=== PATIENT | female | born 1985 | race Two or more races ===

== ENCOUNTER 2024-11-23 18:29 | Inpatient (IN) | payer MEDICAID, OTHER ==
[~2024-11-23] VITALS: Ht 162.6 cm; Wt 70.4 kg
[2024-11-23 19:26] LABS: Urine Protein, UAD TRACE (Negative)
[2024-11-23] MEDS ORDERED: ONDANSETRON HCL 4 MG/2 ML VIAL IV ONE (19:30)
[2024-11-23] MEDS ORDERED: MORPHINE SULFATE 4 MG/ML SYR/VIAL IV ONE (19:30)
--- NOTE | 2024-11-23 19:42 | ED.PDOC ---
GI ASSESSMENT HPI Comments 39 year old female presents to the ED with a chief complaint of abdominal pain onset 1 day. Patient states she began experiencing abdominal pain, described as a sharp pain, periumbilical region, shortly after eating dinner last night. Since then has been experiencing nausea, vomiting, fevers, chills. Patient experienced similar symptoms about 1 week ago, resolved on its own. Denies any PMHx as well as dizziness, chest pain, shortness of breath, hematemesis, dysuria, hematuria. No other symptoms or modifying factors present at this time. Chief Complaint: Abdominal Pain Time Seen by MD: :25 Reviewed Notes: Medications, Allergies Allergies: Coded Allergies: NO KNOWN ALLERGIES (Unverified , 11/23/24) Information Source: Patient, Spouse Mode of Arrival: Ambulatory Timing: Days Duration: Since onset Prehospital treatment: None Quality: Sharp Severity: Moderate Recent: None Recent Hx of: None Pain Location: Periumbilical Modifying Factors: Nothing Associated sign and symptoms: Nausea, Vomiting, Abdominal Pain Past Medical History PAST MEDICAL HISTORY: Denies Surgical History: Denies all surgeries AUTO INSPECTOR History: No Pertinent AUTO INSPECTOR History Family History Family History: Reviewed,noncontributory to illness, No family hx of Cancer, No family hx of DM, No family hx of Heart dorothy, No family hx of HTN, No family hx ofKidney dorothy, No family hx of Liver dorothy, No family hx of Lung dorothy, No family hx of Stroke Social History Smoker: Non-Smoker Alcohol: Denies ETOH Use Drugs: Denies Drug Use Lives In: Home EENTM: denies: blurred vision, double vision, ear bleeding, ear discharge, ear drainage, ear pain, ear ringing, eye pain, eye redness, hearing loss, mouth pain, mouth swelling, nasal discharge, nose bleeding, nose congestion, nose pain, photophobia, tearing, throat pain, throat swelling, voice changes, others Respiratory: denies: cough, hemoptysis, orthopnea, SOB at rest, shortness of breath, SOB with excertion, stridor, wheezing, others Cardiovascular: denies: chest pain, dizzy spells, diaphoresis, Dyspnea on exertion, edema, irregular heart beat, left arm pain, lightheadedness, palpitations, PND, syncope, others Gastrointestinal: reports: abdominal pain, nausea, vomiting; denies: abdomen distended, blood streaked bowels, constipated, diarrhea, dysphagia, difficulty swallowing, hematemesis, melena, poor appetite, poor fluid intake, rectal bleeding, rectal pain, others Genitourinary: denies: abnormal vagina bleeding, burning, dyspareunia, dysuria, flank pain, frequency, hematuria, incontinence, pain, , vagina di scharge, urgency, others Neurological: denies: dizziness, fainting, headache, left sided numbness, left sided weakness, numbness, paresthesia, pre-existing deficit, right sided numbness, right sided weakness, seizure, speech problems, tingling, tremors, weakness, others Musculoskeletal: denies: back pain, gout, joint pain, joint swelling, muscle pain, muscle stiffness, neck pain, others Integumetry: denies: bruises, change in color, change in hair/nails, dryness, laceration, lesions, lumps, rash, wounds, others Allergic/Immunocompromised: denies: Difficulty Healing, Frequent Infections, Hives, Itching, others Hematologic/Lymphatic: denies: anemia, blood clots, easy bleeding, easy bruising, swollen glands, others Endocrine: denies: excessive hunger, excessive sweating, excessive thirst, excessive urination, flushing, intolerance to cold, intolerance to heat, unexplained weight gain, unexplained weight loss, others Psychiatric: denies: anxiety, bipolar disorder, depression, hopeless, panic disorder, schizophrenia, sleepless, suicidal, others All Other Systems: Reviewed and Negative Physical Exam General Appearance: Normal HEENT: Normal ENT Inspection, Pharynx Normal, TMs Normal Neck: Full Range of Motion, Non-Tender, Normal, Normal Inspection Respiratory: Chest Non-Tender, Lungs Clear, No Accessory Muscle Use, No Respiratory Distress, Normal Breath Sounds Cardiovascular: No Edema, No JVD, No Murmur, No Gallop, Normal Peripheral Pulses, Regular Rate/Rhythm Breast Exam: Deferred Gastrointestinal: No Organomegaly, Non Tender, No Pulsatile Mass, Normal Bowel Sounds, Soft Genitalia: Deferred Pelvic: Deferred Rectal: Deferred Extremities: No calf tenderness, Normal capillary refill, Normal inspection, Normal range of motion, Non-tender, No pedal edema Musculoskeletal : Apperance: Normal Neurologic: Alert, manager float II-XII nml as Tested, No Motor Deficits, Normal Affect, Normal Mood, No Sensory Deficits Cerebellar Function: Normal Reflexes: Normal Skin: Dry, Normal Color, Warm Lymphatic: No Adenopathy Was a procedure done? Was a procedure done?: No GI differential Dx Differential Diagnosis: Appendicitis, Missed , Diverticular disease, Ectopic , Gastritis/PUD, PID, Urinary Obstruction, UTI, , Kidney Stone, Other X-Ray, Labs, Meds, VS Vital Signs Date Time Temp Pulse Resp B/P (MAP) Pulse Ox O2 Delivery O2 Flow Rate FiO2 11/23/24 22:12 98.7 109 16 102/57 (72) 95 98.7 11/23/24 20:01 100.9 115 17 99/67 (78) 96 100.9 11/23/24 18:31 99.6 127 20 120/95 96 99.6 Lab Test 11/23/24 19:21 11/23/24 18:41 Range/Units White Blood Count 12.2 H 4.4-10.8 10^3/uL Red Blood Count 4.29 4.0-5.20 10^6/uL Hemoglobin 12.9 12.2-16.2 g/dL Hematocrit 37.6 36.0-46.0 % Mean Corpuscular Volume 87.6 80.0-100.0 fL Mean Corpuscular Hemoglobin 30.0 28.0-32.0 pg Mean Corpuscular Hemoglobin Concent 34.2 32.0-36.0 g/dL Red Cell Distribution Width 13.9 11.8-14.3 % Platelet Count 340 140-450 10^3/uL Mean Platelet Volume 8.1 6.9-10.8 fL Neutrophils (%) (Auto) 86.2 H 37.0-80.0 % Lymphocytes (%) (Auto) 10.0 10.0-50.0 % Monocytes (%) (Auto) 3.6 0.0-12.0 % Eosinophils (%) (Auto) 0.0 0.0-7.0 % Basophils (%) (Auto) 0.2 0.0-2.0 % Neutrophils # (Auto) 10.5 H 1.6-8.6 10 ^3/uL Lymphocytes # (Auto) 1.2 0.4-5.4 10 ^3/uL Monocytes # (Auto) 0.4 0-1.3 10 ^3/uL Eosinophils # (Auto) 0 0-0.8 10 ^3/uL Basophils # (Auto) 0 0-0.2 10 ^3/uL Nucleated Red Blood Cells 0.1 % Sodium Level 135 L 136-145 mmol/L Potassium Level 3.6 3.5-5.1 mmol/L Chloride Level 101 98-107 mmol/L Carbon Dioxide Level 23 20-31 mmol/L Anion Gap 11 5-15 Blood Urea Nitrogen 8 L 9-23 mg/dL Creatinine 0.74 0.550-1.02 mg/dL Glomerular Filtration Rate Calc 105 >90 mL/min BUN/Creatinine Ratio 10.8 10.0-20.0 Serum Glucose 129 H 74-106 mg/dL Calcium Level 8.9 8.7-10.4 mg/dL Total Bilirubin 0.5 0.2-1.0 mg/dL Aspartate Amino Transferase (AST) 15 13-40 U/L Alanine Aminotransferase (ALT) 15 7-40 U/L Alkaline Phosphatase 61 46-116 U/L Total Protein 7.8 5.7-8.2 g/dL Albumin 4.4 3.2-4.8 g/dL Lipase 29 12-53 U/L Urine Color Yellow Yellow Urine Clarity Clear Clear Urine pH 8.0 5.0-9.0 Urine Specific [place] 1.027 1.001-1.035 Urine Protein Trace H Negative Urine Ketones Negative Negative Urine Blood Negative Negative /uL Urine Nitrite Negative Negative Urine Bilirubin Negative Negative Urine Urobilinogen Normal Negative mg/dL Urine Leukocyte Esterase Negative Negative /uL Urine RBC 1 0 - 4 /hpf Urine Microscopic WBC 2 0-5 /HPF Urine Squamous Epithelial Cells Few <5 /hpf Urine Bacteria None seen None Seen /hpf Urine Mucus Few None Seen Urine Glucose Normal Normal mg/dL Urine Test Negative Negative Current Medications Medications (Trade) Dose Ordered Sig/Leonarda Route Start Time Stop Time Status Last Admin Sodium Chloride 1,000 ml @ 1,000 mls/hr Q1H ONCE IVB 11/23/24 19:30 11/23/24 20:29 DC 11/23/24 19:57 Acetaminophen (Tylenol Tablet Or Capsule) 1,000 mg ONCE ONCE PO 11/23/24 20:45 11/23/24 20:46 DC 11/23/24 20:[address] [address] Ph: [phone] DIAGNOSTIC IMAGING Diagnostic Imaging Report : [id number] Signed PATIENT: JODI MCLEAN ACCT: [id number] UNIT: [id number] : 1985 LOC: ER ROOM / BED: / AGE / SEX: 39 / F ADM STATUS: REG ER SERVICE 27 ORDERING PHYSICIAN: STEPHANIE ACEVES MD PROCEDURE(s): ABPLIV - CT AB PEL WITH IV CON ONLY REASON: abd pain ORDER NUMBER(s): [id number], ACCESSION NUMBER(s): [id number] Exam: CT CT AB PEL WITH IV CON ONLY History: abd pain Comparison Study: None TECHNIQUE: Multidetector CT of the abdomen was performed from lung bases to pubic symphysis. Imaging was performed without IV contrast. Axial, coronal and sagittal multiplanar reformats were obtained from the axial data set by the technologist. Radiation Dose Information: CT Dose: CTDI volume is 8.38 mGy. Dose-length product is 436.9 mGy*cm Omnipaque 350: 100 mL FINDINGS: Evaluation of solid organs is limited due to lack of intravenous contrast use. Findings: Lung Bases: No acute or significant lung base finding. Normal heart size. No pleural or pericardial effusion. Liver: The liver is normal in size. No focal lesions. Gallbladder and Biliary Tree: Unremarkable Spleen: Unremarkable Pancreas: The pancreas is grossly normal in appearance. Adrenal Glands: Unremarkable Kidneys: Kidneys are grossly normal without calculi or hydronephrosis. Bladder: Grossly unremarkable for degree of distention. Bowel: The stomach is grossly normal in appearance. Small bowel and colon are normal in caliber and distribution. The appendix is not visualized; however, no secondary findings of acute appendicitis identified. Ascites: Absent Lymphadenopathy: No mesenteric, retroperitoneal or periportal lymphadenopathy. Abdominal Wall and Mesentery: Unremarkable. Vasculature: The visualized abdominal aorta is normal in size and caliber. Evaluation of abdominal and pelvic vessels is limited due to lack of intravenous contrast. Pelvic Organs: In the left adnexa there appear to be 2 low-density masses which appear to be overlapping or may represent a solitary septated mass. Measures 5 0.1 x 3.7 cm. Pain is referable to this area recommend pelvic ultrasound. There appears to be 5.7 by 3 cm fluid collection in the cul-de-sac. Musculoskeletal: No aggressive focal bony lesions, acute fractures or dislocation. Soft tissues: Unremarkable IMPRESSION: 1. 2 low-density masses in the left adnexa with moderate amount of fluid in the cul-de-sac. Findings may represent simple ovarian cysts or tubo-ovarian abscess. Can not exclude ovarian torsion correlate with the degree of patient discomfort. Tissue density of the fluid in the cul-de-sac is 24 Hounsfield units. This is not simple serous fluid of a uncomplicated cyst. This may represent hemorrhagic fluid or infected fluid. No gas in the collection. 2. Correlate with the clinical setting. 3. Appendix not visualized. 4. Currently there are no findings to suggest bowel obstruction. Radiation optimization: All CT scans at this facility use at least one of these dose optimization techniques: automated exposure control mA and/or kV adjustment per patient size (includes targeted exams where dose is matched to clinical indication) or iterative reconstruction. ATED BY: KYLE RAMEY Jr., DO DICTATED DATE/TIME: 11/23/242056 SIGNED BY: KYLE RAMEY Jr., SIGNED DATE/TIME: 11/23/242056 CC: Time of 1ST Reevaluation: 19:55 Reevaluation 1ST: Unchanged Patient Education/Counseling: Diagnosis, Treatment, Prognosis Family Education/Counseling: Diagnosis, Treatment, Prognosis Additional Information The following tests were ordered, and results were reviewed by me: CBC, CMP, LIPASE, UA, PREGUA, CT AB PEL WITH IV CON Additional Information was gathered from interviewing the following independent historians: Spouse I reviewed and agreed with the following test results read by other providers: CT AB PEL WITH IV CON I discussed treatment and results with medical personnel and: patient and spouse Comprehensive systems review obtained and negative except for what is stated in the HPI. SEPSIS Sepsis Screen Date sepsis recognized/suspect: Nov 23, 2024 Time Sepsis recognized/suspect: 1830 Recent Procedure: No On Antibiotic Therapy: No Respiratory Rate >20: No Heart Rate >90: Yes Temp<36 C (96.8 F) or >38.3 C: No SBP <90 or MAP <65 mmHG: No New Acute Mental Status Change: No Is the patient on CPAP, BIPAP,: No Physician Orders Ct Ab Pel With Iv Con Only (11/23/24 19:28) Lactic Acid W/ Reflex Order (11/23/24 22:19) Blood Culture (11/23/24 22:19) Chlamydia/Gc Amplification (11/23/24 22:19) Ceftriaxone Ivpb Rocephin (11/23/24 22:30) Azithromycin 500mg/ 250ml (Zithromax 50 (11/23/24 22:30) Vital Signs Date Time Temp Pulse Resp B/P (MAP) Pulse Ox O2 Delivery O2 Flow Rate FiO2 11/23/24 22:12 98.7 109 16 102/57 (72) 95 98.7 11/23/24 20:01 100.9 115 17 99/67 (78) 96 100.9 11/23/24 18:31 99.6 127 20 120/95 96 99.6 Laboratory Tests Test 11/23/24 19:21 White Blood Count 12.2 10^3/uL (4.4-10.8) H Medications Medications Dose Ordered Sig/Leonarda Route Start Time Stop Time Status Last Admin Dose Admin Acetaminophen 1,000 mg ONCE ONCE PO 11/23/24 20:45 11/23/24 20:46 DC 11/23/24 20:45 Sodium Chloride 1,000 ml @ 1,000 mls/hr Q1H ONCE IVB 11/23/24 19:30 11/23/24 20:29 DC 11/23/24 19:57 Departure 1 Departure Time of Disposition: 22:21 Impression: Primary Impression: Tubo-ovarian inflammatory disease Additional Impression: Ovarian cyst Disposition: ADMITTED INPATIENT Condition: Guarded Comments Mid and CT reviewed. White blood cell count elevated 12.2. CT of the abdomen and pelvis shows: 2 low-density masses in the left adnexa with moderate amount of fluid in the cul-de-sac. Findings may represent simple ovarian cysts or tubo-ovarian abscess. Can not exclude ovarian torsion correlate with the degree of patient discomfort. Tissue density of the fluid in the cul-de-sac is 24 Hounsfield units. This is not simple serous fluid of a uncomplicated cyst. This may represent hemorrhagic fluid or infected fluid. No gas in the collection. Patient was given IV Rocephin and IV azithromycin antibiotics. I attempted to consult with OBGYN Dr. Calvillo but she was unavailable. Patient will need to be admitted to the hospitalist service for presumed tubo-ovarian abscess- IV antibi otics and OBGYN consultation tomorrow Critical Care Note Critical Care Time?: No Stability Stability form required: No Heart Score Heart Score: Heart Score Response (Comments) Value History N/A 0 EKG N/A 0 Age N/A 0 Risk Factors N/A 0 Troponin N/A 0 Total 0 I personally scribed for STEPHANIE ACEVES MD ([email or web address]) on 11/23/24 at 19:42. Electronically submitted by Rand Rodriguez ([email or web address]). I personally scribed for STEPHANIE ACEVES MD ([email or web address]) on 11/23/24 at 20:09. Electronically submitted by Rand Rodriguez ([email or web address]). I personally scribed for STEPHANIE ACEVES MD ([email or web address]) on 11/23/24 at 21:51. Electronically submitted by Rand Rodriguez ([email or web address]). STEPHANIE ACEVES MD Nov 23, 2024 19:42
[2024-11-23 19:53] LABS: Hematocrit 37.6 % (36.0-46.0); Hemoglobin 12.9 g/dL (12.2-16.2); Mean Corpuscular Hemoglobin 30.0 pg (28.0-32.0); Mean Corpuscular Volume 87.6 fL (80.0-100.0); Nucleated Red Blood Cells % 0.1 %
[2024-11-23] MEDS: SODIUM CHLORIDE 0.9% 1,000 ML IVB ONE (19:57)
[2024-11-23] MEDS: IOHEXOL 300 MG/ML 100ML BOTTLE IJ ONE (20:01)
[2024-11-23 20:10] LABS: Alanine Aminotransferase 15 U/L (7-40); Albumin 4.4 g/dL (3.2-4.8); Alkaline Phosphatase 61 U/L (46-116); Anion Gap 11 (5-15); BUN/Creatinine Ratio 10.8 (10.0-20.0); Bilirubin, Total 0.5 mg/dL (0.2-1.0); Calcium 8.9 mg/dL (8.7-10.4); Carbon Dioxide 23 mmol/L (20-31); Chloride 101 mmol/L (98-107); Lipase 29 U/L (12-53); Potassium 3.6 mmol/L (3.5-5.1); Total Protein 7.8 g/dL (5.7-8.2)
[2024-11-23 20:22] LABS: Blood Urea Nitrogen 8 mg/dL (9-23); Glucose 129 mg/dL (74-106); Sodium 135 mmol/L (136-145)
[2024-11-23] MEDS: ACETAMINOPHEN 500 MG TAB or CAP PO ONE (20:45)
--- NOTE | 2024-11-23 20:59 | DVH ---
Exam: CT CT AB PEL WITH IV CON ONLY History: abd pain Comparison Study: None TECHNIQUE: Multidetector CT of the abdomen was performed from lung bases to pubic symphysis. Imaging was performed without IV contrast. Axial, coronal and sagittal multiplanar reformats were obtained fr om the axial data set by the technologist. Radiation Dose Information: CT Dose: CTDI volume is 8.38 mGy. Dose-length product is 436.9 mGy*cm Omnipaque 350: 100 mL FINDINGS: Evaluation of solid organs is limited due to lack of intravenous contrast use. Findings: Lung Bases: No acute or significant lung base finding. Normal heart size. No pleural or pericardial effusion. Liver: The liver is normal in size. No focal lesions. Gallbladder and Biliary Tree: Unremarkable Spleen: Unremarkable Pancreas: The pancreas is grossly normal in appearance. Adrenal Glands: Unremarkable Kidneys: Kidneys are grossly normal without calculi or hydronephrosis. Bladder: Grossly unremarkable for degree of distention. Bowel: The stomach is grossly normal in appearance. Small bowel and colon are normal in caliber and d istribution. The appendix is not visualized; however, no secondary findings of acute appendicitis id entified. Ascites: Absent Lymphadenopathy: No mesenteric, retroperitoneal or periportal lymphadenopathy. Abdominal Wall and Mesentery: Unremarkable. Vasculature: The visualized abdominal aorta is normal in size and caliber. Evaluation of abdominal a nd pelvic vessels is limited due to lack of intravenous contrast. Pelvic Organs: In the left adnexa there appear to be 2 low-density masses which appear to be overlapp ing or may represent a solitary septated mass. Measures 5 0.1 x 3.7 cm. Pain is referable to this are a recommend pelvic ultrasound. There appears to be 5.7 by 3 cm fluid collection in the cul-de-sac. Musculoskeletal: No aggressive focal bony lesions, acute fractures or dislocation. Soft tissues: Unremarkable IMPRESSION: 1. 2 low-density masses in the left adnexa with moderate amount of fluid in the cul-de-sac. Findings may represent simple ovarian cysts or tubo-ovarian abscess. Can not exclude ovarian torsion correlat e with the degree of patient discomfort. Tissue density of the fluid in the cul-de-sac is 24 Hounsfi eld units. This is not simple serous fluid of a uncomplicated cyst. This may represent hemorrhagic f luid or infected fluid. No gas in the collection. 2. Correlate with the clinical setting. 3. Appendix not visualized. 4. Currently there are no findings to suggest bowel obstruction. Radiation optimization: All CT scans at this facility use at least one of these dose optimization nina hniques: automated exposure control mA and/or kV adjustment per patient size (includes targeted exam s where dose is matched to clinical indication) or iterative reconstruction.
[2024-11-23] MEDS ORDERED: ONDANSETRON HCL 4 MG/2 ML VIAL IV PRN (23:45)
[2024-11-23] MEDS: DOXYCYCLINE 100MG/100ML 100 ML IV SCH (23:45)
[2024-11-23] MEDS ORDERED: HYDROcodone-ACET 5/325MG TAB PO PRN (23:45)
[2024-11-23] MEDS ORDERED: MORPHINE SULFATE INJ 2 MG/ml SYRG IV PRN (23:45)
[2024-11-23] MEDS: LACTATED RINGER'S 1,000 ML IV ONE (23:45)
[2024-11-23] MEDS ORDERED: DOCUSATE SOD 100 MG CAP PO PRN (23:45)
--- NOTE | 2024-11-23 23:45 | DVHHPRES ---
History of Present Illness Resident Creating Document: JULIUS BERTRAND RESIDENT History of Present Illness / Geena Fish is a 39-year-old female, with past medical history of pre-DM type 2 and hypertension. The patient presented to the ED with a chief complaint of 1 day of abdominal pain 9/10, sharp pain, located in the periumbilical region; associated with nausea, vomiting #1, subjective fever and chills. The patient last period was 11/15/24. The patient reports experienced similar episode about 1 week ago that presented with vaginal spotting that last 3 days that resolved on its own. The patient denies shortness of breath, dizziness, diarrhea, dysuria, hematuria or other symptoms. On initial evaluation the patient was found tachycardic, febrile 100.9 F, leucocytosis WBC 12.2x10e3/ul, CT abd/pelv showed: two low-density masses in the left adnexa with moderate amount of fluid in the cul-de-sac. Findings may represent simple ovarian cysts or tubo-ovarian abscess. Pelvic US showed: complex 5 x 4 x 7 cm tubular structure seen in the posterior pelvis. This could represent a tubular ovarian abscess. The patient will be admitted for further assessment and management. Cardiovascular: HTN Endocrine: Diabetes (Type 2 ) Past Surgical History: (3 C-Sections) Family History: None Smoke: No ALCOHOL: occassional Drugs: None Lives: with Family Review of Systems Constitutional: Yes: Fever, Chills, Malaise; No: Sweats, Weakness, Other Eyes: No: Pain, Vision change, Conjunctivae inflammation, Eyelid inflammation, Other, Redness ENT: No: Ear pain, Ear discharge, Nose pain, Nose discharge, Nose congestion, Mouth pain, Mouth swelling, Throat pain, Throat swelling, Other Respiratory: No: Cough, Dry, Shortness of breath, SOB with excertion, Wheezing, Hemoptysis, Pleuritic Pain, Sputum, Wheezing, Other Cardiovascular: No: Chest Pain, Palpitations, Orthopnea, Paroxysmal Noc. Dyspnea, Edema, Lt Headedness, Other Gastrointestinal: Nausea, Vomiting, Abdominal Pain; No: Diarrhea, Constipation, Melena, Hematochezia, Other Genitourinary: No Dysuria, No Frequency, No Incontinence, No Hematuria, No Retention, No Other Musculoskeletal: No: other, neck pain, shoulder pain, arm pain, back pain, hand pain, leg pain, foot pain Skin: No: Rash, Lesions, Jaundice, Bruising, Other Neurological: No: Weakness, Numbness, Incoordination, Change in speech, Co nfusion, Seizures, Other Allergies: Coded Allergies: NO KNOWN ALLERGIES (Unverified , 11/23/24) Medications Current Medications Medications Dose Ordered Sig/Leonarda Route Start Time Stop Time Status Last Admin Dose Admin Ceftriaxone Sodium 50 ml @ 100 mls/hr DAILY IV 11/24/24 10:00 UNV Doxycycline Hyclate 100 ml @ 50 mls/hr Q12HR IV 11/23/24 23:45 UNV Metronidazole 500 mg Q8HR PO 11/24/24 02:00 UNV Exam Vital Signs Vital Signs Date Time Temp Pulse Resp B/P (MAP) Pulse Ox O2 Delivery O2 Flow Rate FiO2 11/23/24 22:12 98.7 109 16 102/57 (72) 95 98.7 General Appearance: Alert, Oriented X3, Cooperative, moderate distress HEENT: Atraumatic, Mucous membr. moist/pink Respiratory: Clear to auscultation, Normal air movement Cardiovascular: Regular rate, Normal S1, Normal S2, No murmurs Abdominal: Normal bowel sounds, Other (Abdomen is flat, bolwel sounds active, tender to the palpation in all quadrants. ) Extremities: No clubbing, No cyanosis, No edema, Normal pulses, No tenderness/swelling Skin: No rashes, No breakdown, No significant lesion Neuro: Normal gait, Normal speech, Strength at 5/5 X4 ext, Normal tone, Sensation intact Psych/Mental Status: Mental status NL, Mood NL Labs/Xrays Labs Test 11/23/24 22:38 11/23/24 19:21 11/23/24 18:41 Range/Units Lactic Acid Level 0.9 0.4-2.0 mmol/L White Blood Count 12.2 H 4.4-10.8 10^3/uL Red Blood Count 4.29 4.0-5.20 10^6/uL Hemoglobin 12.9 12.2-16.2 g/dL Hematocrit 37.6 36.0-46.0 % Mean Corpuscular Volume 87.6 80.0-100.0 fL Mean Corpuscular Hemoglobin 30.0 28.0-32.0 pg Mean Corpuscular Hemoglobin Concent 34.2 32.0-36.0 g/dL Red Cell Distribution Width 13.9 11.8-14.3 % Platelet Count 340 140-450 10^3/uL Mean Platelet Volume 8.1 6.9-10.8 fL Neutrophils (%) (Auto) 86.2 H 37.0-80.0 % Lymphocytes (%) (Auto) 10.0 10.0-50.0 % Monocytes (%) (Auto) 3.6 0.0-12.0 % Eosinophils (%) (Auto) 0.0 0.0-7.0 % Basophils (%) (Auto) 0.2 0.0-2.0 % Neutrophils # (Auto) 10.5 H 1.6-8.6 10 ^3/uL Lymphocytes # (Auto) 1.2 0.4-5.4 10 ^3/uL Monocytes # (Auto) 0.4 0-1.3 10 ^3/uL Eosinophils # (Auto) 0 0-0.8 10 ^3/uL Basophils # (Auto) 0 0-0.2 10 ^3/uL Nucleated Red Blood Cells 0.1 % Sodium Level 135 L 136-145 mmol/L Potassium Level 3.6 3.5-5.1 mmol/L Chloride Level 101 98-107 mmol/L Carbon Dioxide Level 23 20-31 mmol/L Anion Gap 11 5-15 Blood Urea Nitrogen 8 L 9-23 mg/dL Creatinine 0.74 0.550-1.02 mg/dL Glomerular Filtration Rate Calc 105 >90 mL/min BUN/Creatinine Ratio 10.8 10.0-20.0 Serum Glucose 129 H 74-106 mg/dL Calcium Level 8.9 8.7-10.4 mg/dL Total Bilirubin 0.5 0.2-1.0 mg/dL Aspartate Amino Transferase (AST) 15 13-40 U/L Alanine Aminotransferase (ALT) 15 7-40 U/L Alkaline Phosphatase 61 46-116 U/L Total Protein 7.8 5.7-8.2 g/dL Albumin 4.4 3.2-4.8 g/dL Lipase 29 12-53 U/L Urine Color Yellow Yellow Urine Clarity Clear Clear Urine pH 8.0 5.0-9.0 Urine Specific [place] 1.027 1.001-1.035 Urine Protein Trace H Negative Urine Ketones Negative Negative Urine Blood Negative Negative /uL Urine Nitrite Negative Negative Urine Bilirubin Negative Negative Urine Urobilinogen Normal Negative mg/dL Urine Leukocyte Esterase Negative Negative /uL Urine RBC 1 0 - 4 /hpf Urine Microscopic WBC 2 0-5 /HPF Urine Squamous Epithelial Cells Few <5 /hpf Urine Bacteria None seen None Seen /hpf Urine Mucus Few None Seen Urine Glucose Normal Normal mg/dL Urine Test Negative Negative SEPSIS Sepsis Screen Date sepsis recognized/suspect: Nov 23, 2024 Time Sepsis recognized/suspect: 1830 Recent Procedure: No On Antibiotic Therapy: Yes Respiratory Rate >20: No Heart Rate >90: Yes Temp<36 C (96.8 F) or >38.3 C: Yes SBP <90 or MAP <65 mmHG: No New Acute Mental Status Change: No Is the patient on CPAP, BIPAP,: No Physician Orders Ct Ab Pel With Iv Con Only (11/23/24 19:28) Blood Culture (11/23/24 22:19) Chlamydia/Gc Amplification (11/23/24 22:19) Azithromycin 500mg/ 250ml (Zithromax 50 (11/23/24 22:30) Ceftriaxone 1gm/50ml D5w (Rocephin) (11/24/24 10:00) Doxycycline 100mg/100ml (Vibramycin) (11/23/24 23:45) Metronidazole Tablet (Flagyl Tablet) (11/24/24 02:00) Lactated Ringer's (11/23/24 23:45) Sodium Chloride 0.9% (11/24/24 01:00) Vital Signs Date Time Temp Pulse Resp B/P (MAP) Pulse Ox O2 Delivery O2 Flow Rate FiO2 11/23/24 22:12 98.7 109 16 102/57 (72) 95 98.7 11/23/24 20:01 100.9 115 17 99/67 (78) 96 100.9 11/23/24 18:31 99.6 127 20 120/95 96 99.6 Laboratory Tests Test 11/23/24 19:21 11/23/24 22:38 White Blood Count 12.2 10^3/uL (4.4-10.8) H Lactic Acid Level 0.9 mmol/L (0.4-2.0) Medications Medications Dose Ordered Sig/Leonarda Route Start Time Stop Time Status Last Admin Dose Admin Acetaminophen 1,000 mg ONCE ONCE PO 11/23/24 20:45 11/23/24 20:46 DC 11/23/24 20:45 1,000 MG Sodium Chloride 1,000 ml @ 1,000 mls/hr Q1H ONCE IVB 11/23/24 19:30 11/23/24 20:29 DC 11/23/24 19:57 1,000 MLS/HR Assessment/Plan Assessment/Plan #Sepsis, possible due to pelvic inflammatory disease: #Tubo-ovarian abscess Tachycardic, febrile 100.9F, Leucocytosis 12.2x10e3 IV fluids: Ringer's lactate Blood culture Pelvic US, Vaginal US Morphine 2mg IV Ceftriaxone 1g IV Doxycycline 100mg IV Metronidazole 500mg IV RIM TURNING FINISHER consult. #Essential Hypertension Medication reconciliation #Pre-Diabetes Low carb- Diet Continue with life style modifications Diet: Clear liquids DVT prophylaxis- SCD PUD prophylaxis Protonics. Goals of care discussed with the patient > 35 min. Discussed plan of care with Dr. Salazar Code status: Full code PCP: Patient does not recall name. Plan discussed with: Patient and partner, the patient agrees with the admission plan. Plan discussed with: Patient, Spouse Date of Service: Nov 23, 2024 Billing Provider: FOZIA SALAZAR MD Common Visit Codes: [id number] INP/OBS CARE (HIGH) Secondary Visit Codes: [id number] CARE PLAN 30 MINUTES JULIUS BERTRAND RESIDENT Nov 23, 2024 23:45
[2024-11-24] VITALS (7 sets, daily range): BP systolic 100–126; BP diastolic 58–77; PULSE 66–108; RESP 16–19; TEMP 97.9–98.3; O2SAT 96–100
[2024-11-24 00:21] LABS: Amphetamine Screen, Urine Neg (NEGATIVE); Barbiturate Scree,Urine Neg (NEGATIVE); Opiate Scree,Urine Neg (NEGATIVE); Phencyclidine Screen, Urine Neg (NEGATIVE)
[2024-11-24 00:22] LABS: Benzodiazephine Screen, Urine Neg (NEGATIVE); Cannabinoid Screen, Urine Neg (NEGATIVE); Cocaine Screen, Urine Neg (NEGATIVE)
[2024-11-24] MEDS: cefTRIAXone 1GM/50ML D5W 50 ML IV ONE (00:49)
[2024-11-24] MEDS: AZITHROMYCIN 500MG/ 250ML 250 ML IV ONE (01:50)
[2024-11-24] MEDS: SODIUM CHLORIDE 0.9% 1,000 ML IV ONE (01:50)
[2024-11-24] MEDS: metroNIDAZOLE 500 MG TAB PO SCH (02:00)
--- NOTE | 2024-11-24 02:57 | DVH ---
INDICATION: R/O tubo-ovaric abscess TECHNIQUE: Multiple real-time grayscale transabdominal and TV sonographic images along with color an d duplex Doppler of the uterus and ovaries were obtained. COMPARISON: None FINDINGS: The uterus measures 10 x 5 x 4 cm. The endometrial stripe measures 9.8cm. The right ovary measures 2 x 1 x 1 cm. 1 cm right ovarian cyst. The left ovary measures 4 x 5 x 4 cm. There is a complex 5 x 4 x 7 cm tubular structure seen in the p osterior pelvis. This could represent a tubular ovarian abscess. 2 x 2 x 3 cm complex cyst left ovar y. Subsequent color and duplex Doppler interrogation of the ovaries demonstrated symmetric vascular flow to both ovaries, though this does not exclude the possibility of torsion due to the dual blood suppl y. IMPRESSION: 1. complex 5 x 4 x 7 cm tubular structure seen in the posterior pelvis. This could represent a tubul ar ovarian abscess.
[2024-11-24] MEDS: PANTOPRAZOLE 40 MG/10 ML VIAL INJ IV SCH (08:33)
[2024-11-24] MEDS: cefTRIAXone 1GM/50ML D5W 50 ML IV SCH (08:34)
[2024-11-24] MEDS: ACETAMINOPHEN 325 MG TAB PO PRN (08:40)
--- NOTE | 2024-11-24 08:53 | DVHPNRES ---
Progress Note Date Seen: Nov 24, 2024 Resident Creating Document: JO SHER RESIDENT Medical Necessity Reason Pt with a Central, PICC or Fol: No Subjective Review of Systems Brief history on admission: Geena Fish is a 39-year-old female with past medical history of prediabetes and hypertension, presented to the ER with a chief complaint of abdominal pain, bloating. She describes the pain as 9/10, sharp pain, located in the periumbilical region; associated with nausea, subjective fever and chills. She had 1 episode of vomiting, with food contents, no blood, associated with dizziness. Her LMP is 11/15/24 regular cycles every month. She reports similar episode of mild abdominal pain, bloating last month that presented with vaginal spotting, spotting resolved after 7 days. The patient denies shortness of breath, dizziness, diarrhea, dysuria, hematuria or other symptoms. PMHx: Prediabetes, hypertension PSHx: sections Social history: He reports occasional alcohol use, denies smoking or recreational drug use ROS: Constitutional: Fever, chills , sweating profusely HEENT: Denies changes in vision and hearing. Respiratory: Denies shortness of breath and cough Cardiovascular: Denies chest discomfort or palpitations GI: Abdominal pain, nausea, bloating, nausea, vomiting : Denies dysuria and urinary frequency. Musculoskeletal: Denies myalgias and joint pain Skin: Denies rash and pruritus. Neurological: Dizziness 11/2024: She was examined at bedside today. Complains of abdominal pain and reports feeling bloated, gassy. She also reported pressure on bladder when she tries to urinate. Her ultrasound reveals tubo-ovarian abscess, she will continue IV antibiotics. Objective vital signs Vital Sign Date Time Temp Pulse Resp B/P (MAP) Pulse Ox O2 Delivery O2 Flow Rate FiO2 11/24/24 08:24 98.2 86 16 100/58 (72) 97 98.2 11/24/24 00:52 Room Air medications Current Medications Medications Dose Ordered Sig/Leonarda Route Start Time Stop Time Status Last Admin Dose Admin Ceftriaxone Sodium 50 ml @ 100 mls/hr DAILY IV 11/24/24 10:00 11/24/24 08:34 100 MLS/HR Doxycycline Hyclate 100 ml @ 50 mls/hr Q12HR IV 11/23/24 23:45 Metronidazole 500 mg Q8HR PO 11/24/24 02:00 11/24/24 06:22 500 MG Docusate Sodium 100 mg BIDPRN PRN PO 11/23/24 23:45 Acetaminophen 650 mg Q6HP PRN PO 11/23/24 23:45 11/24/24 08:40 650 MG Acetaminophen/ Hydrocodone Bitart 1 tab Q4HP PRN PO 11/23/24 23:45 Ondansetron HCl 4 mg Q4HP PRN IV 11/23/24 23:45 Morphine Sulfate 2 mg Q4HPRN PRN IV 11/23/24 23:45 Pantoprazole Sodium 40 mg DAILY IV 11/24/24 10:00 11/24/24 08:33 40 MG Examination General: Apparent discomfort. Patient alert and oriented in person, place and time. Patient following commands. HEENT: Normocephalic, atraumatic, moist mucous membranes Respiratory/pulmonary: Clear lungs bilaterally, vesicular murmurs present in almost all lung [place], no associated crackles or wheezes. Cardiovascular: Normal heart sounds S1 and S2 with no associated murmurs Abdomen: Tenderness in epigastric, periumbilical and pelvic area, with guarding and rigidity Extremities: There is no peripheral edema present at the lower extremities. Peripheral Pulses: 3+ Radial (R). 3+ Radial (L). 3+ Dorsalis pedis (R). 3+ Dorsalis pedis(L) Skin: No rashes or pruritus, there is no sacral edema present at this time. Neurological: Intact cranial nerves with no focal neurologic deficits laboratory and microbiology Laboratory Tests 11/23/24 19:21 Test 11/23/24 19:21 Range/Units Serum Glucose 129 H 74-106 mg/dL Problem List/Assessment/Plan Problem List/Assessment/Plan Sepsis, possible due to below Pelvic inflammatory disease, possible Tubo-ovarian abscess Ovarian cyst Labs show neutrophilic leukocytosis Blood culture, trachomatis, and gonorrhea ordered Ultrasound shows 5 x 4 x 7 cm tubular structure seen in the posterior pelvis, likely representing a tubular ovarian abscess. Continue pain management Continue ceftriaxone, metronidazole, doxycycline OBGYN consulted recommended continuation of triple antibiotic therapy History of Essential hypertension, prediabetes DIET: Clear liquid DVT PROPHYLAXIS: SCD GI PROPHYLAXIS: Protonix CODE STATUS: Goals of care discussed with patient at bedside for more than 35 minutes. DISPOSITION: Med/surge Patient's status and plan discussed with the patient. Case discussed with Dr. Ritter. Plan discussed with: Patient Date of Service: Nov 24, 2024 Billing Provider: PÉREZ RITTER MD Common Visit Codes: [id number] INP/OBS CARE(HIGH) JO SHER RESIDENT Nov 24, 2024 08:53 PÉREZ RITTER MD Nov 24, 2024 22:38
--- NOTE | 2024-11-24 14:52 | DVHINCON2 ---
Date of service: Nov 24, 2024 Referring Physician hospitalist Reason for Consultation abd pain,fever and chills History of Present Illness pt is admitted for suspected pid,she had abd pain,n,v and chills. pt has a 5cm mass post to uterus.currently she is pain free and not requiring any pain medication.her last pap was many yrs ago Past Medical History none Past Surgical History csx3 Family History na Social History na, Patient Family History: Diabetes mellitus G8 MOTHER G8 FATHER Allergies: Coded Allergies: NO KNOWN ALLERGIES (Unverified , 11/23/24) Home Meds No Active Prescriptions or Reported Meds Current Medications Current Medications Medications (Trade) Dose Ordered Sig/Leonarda Route PRN Reason Start Time Stop Time Status Last Admin Ceftriaxone Sodium 50 ml @ 100 mls/hr DAILY IV 11/24/24 10:00 11/24/24 08:34 Doxycycline Hyclate 100 ml @ 50 mls/hr Q12HR IV 11/23/24 23:45 11/24/24 09:13 Metronidazole (Flagyl Tablet) 500 mg Q8HR PO 11/24/24 02:00 11/24/24 13:15 DC 11/24/24 06:22 Docusate Sodium (Colace Capsule) 100 mg BIDPRN PRN PO FOR CONSTIPATION 11/23/24 23:45 11/24/24 11:20 DC Acetaminophen (Tylenol Tablet) 650 mg Q6HP PRN PO PAIN SCALE 1-3 OR TEMP>100.4 11/23/24 23:45 11/24/24 08:40 Acetaminophen/ Hydrocodone Bitart ([place] 5/325MG Tab) 1 tab Q4HP PRN PO MODERATE PAIN (4-6 PAIN SCALE) 11/23/24 23:45 Ondansetron HCl (Zofran) 4 mg Q4HP PRN IV NAUSEA / VOMITING 11/23/24 23:45 11/24/24 11:20 DC Morphine Sulfate 2 mg Q4HPRN PRN IV SEVERE PAIN (7-10 PAIN SCALE) 11/23/24 23:45 11/24/24 11:20 DC Pantoprazole Sodium (Protonix) 40 mg DAILY IV 11/24/24 10:00 11/24/24 11:20 DC 11/24/24 08:33 Metronidazole 100 ml @ 100 mls/hr Q8HR IV 11/24/24 14:00 Review of Systems Constitutional: no fever, chill, weight loss HEENT: no eye pain, no hearing loss, no oral lesion, no scleral icterus Heart: no chest pain, no chest pressure Lung: no cough, no dyspnea with exertion Abdomen: see HPI : no pain with urination, normal appearing urine Musculoskeletal: no joint pain, no muscle pain Neurological: no seizure, no loss of sensation, no weakness in extremities Pysch: no depression, no anxiety Derm: no rash, no jaundice Vital Signs Vital Signs Date Time Temp Pulse Resp B/P (MAP) Pulse Ox O2 Delivery O2 Flow Rate FiO2 11/24/24 08:24 98.2 86 16 100/58 (72) 97 98.2 11/24/24 00:52 Room Air Physical Exam alert in no distress HEENT: [nl] NECK: [nl] CARDIAC: [rrr] PULMONARY: [cta] ABDOMEN: [soft,nt,non distended,no rebound pelvic- vag nl,not hot,vcx nl,nt,uterus nt,adenxa nt ext -no cce] Labs/Diagnostic Data Labs Test 11/23/24 22:38 11/23/24 19:21 11/23/24 18:41 Range/Units Lactic Acid Level 0.9 0.4-2.0 mmol/L White Blood Count 12.2 H 4.4-10.8 10^3/uL Red Blood Count 4.29 4.0-5.20 10^6/uL Hemoglobin 12.9 12.2-16.2 g/dL Hematocrit 37.6 36.0-46.0 % Mean Corpuscular Volume 87.6 80.0-100.0 fL Mean Corpuscular Hemoglobin 30.0 28.0-32.0 pg Mean Corpuscular Hemoglobin Concent 34.2 32.0-36.0 g/dL Red Cell Distribution Width 13.9 11.8-14.3 % Platelet Count 340 140-450 10^3/uL Mean Platelet Volume 8.1 6.9-10.8 fL Neutrophils (%) (Auto) 86.2 H 37.0-80.0 % Lymphocytes (%) (Auto) 10.0 10.0-50.0 % Monocytes (%) (Auto) 3.6 0.0-12.0 % Eosinophils (%) (Auto) 0.0 0.0-7.0 % Basophils (%) (Auto) 0.2 0.0-2.0 % Neutrophils # (Auto) 10.5 H 1.6-8.6 10 ^3/uL Lymphocytes # (Auto) 1.2 0.4-5.4 10 ^3/uL Monocytes # (Auto) 0.4 0-1.3 10 ^3/uL Eosinophils # (Auto) 0 0-0.8 10 ^3/uL Basophils # (Auto) 0 0-0.2 10 ^3/uL Nucleated Red Blood Cells 0.1 % Sodium Level 135 L 136-145 mmol/L Potassium Level 3.6 3.5-5.1 mmol/L Chloride Level 101 98-107 mmol/L Carbon Dioxide Level 23 20-31 mmol/L Anion Gap 11 5-15 Blood Urea Nitrogen 8 L 9-23 mg/dL Creatinine 0.74 0.550-1.02 mg/dL Glomerular Filtration Rate Calc 105 >90 mL/min BUN/Creatinine Ratio 10.8 10.0-20.0 Serum Glucose 129 H 74-106 mg/dL Hemoglobin A1c 5.9 H <5.7 % A1C Calcium Level 8.9 8.7-10.4 mg/dL Total Bilirubin 0.5 0.2-1.0 mg/dL Aspartate Amino Transferase (AST) 15 13-40 U/L Alanine Aminotransferase (ALT) 15 7-40 U/L Alkaline Phosphatase 61 46-116 U/L Total Protein 7.8 5.7-8.2 g/dL Albumin 4.4 3.2-4.8 g/dL Lipase 29 12-53 U/L Beta HCG, Quantitative < 0.0 L 1.5-4.2 mIU/mL Urine Color Yellow Yellow Urine Clarity Clear Clear Urine pH 8.0 5.0-9.0 Urine Specific [place] 1.027 1.001-1.035 Urine Protein Trace H Negative Urine Ketones Negative Negative Urine Blood Negative Negative /uL Urine Nitrite Negative Negative Urine Bilirubin Negative Negative Urine Urobilinogen Normal Negative mg/dL Urine Leukocyte Esterase Negative Negative /uL Urine RBC 1 0 - 4 /hpf Urine Microscopic WBC 2 0-5 /HPF Urine Squamous Epithelial Cells Few <5 /hpf Urine Bacteria None seen None Seen /hpf Urine Mucus Few None Seen Urine Glucose Normal Normal mg/dL Urine Test Negative Negative Urine Opiates Screen Neg NEGATIVE Urine Fentanyl Screen Neg NEGATIVE Urine Barbiturates Screen Neg NEGATIVE Urine Phencyclidine Screen Neg NEGATIVE Urine Amphetamines Screen Neg NEGATIVE Urine Benzodiazepines Screen Neg NEGATIVE Urine Cocaine Screen Neg NEGATIVE Urine Cannabinoids Screen Neg NEGATIVE Primary Diagnosis abd pain suspect pid ovarian cyst doublt toa Plan pt is on triple abx,currently pain free not requring pain meds will follow with you Plan discussed with: Patient Visit Coding OBGYN Date of Service: Nov 24, 2024 Billing Provider: JUDI HARRISON DO TIP BANDING MACHINE OPERATOR Common Visit Codes: [id number] OBS CARE (HIGH) TIP BANDING MACHINE OPERATOR Consultation Codes: [id number] CONSULT <110MIN JUDI HARRISON DO Nov 24, 2024 14:52
[2024-11-24] MEDS: DOXYCYCLINE 100MG/100ML 100 ML IV SCH (23:07)
[2024-11-25] VITALS (8 sets, daily range): BP systolic 101–118; BP diastolic 60–77; PULSE 76–95; RESP 17–18; TEMP 97.8–98; O2SAT 98–100
[2024-11-25 07:38] LABS: Anion Gap 11 (5-15); Carbon Dioxide 23 mmol/L (20-31); Chloride 106 mmol/L (98-107); Hematocrit 33.1 % (36.0-46.0); Hemoglobin 11.2 g/dL (12.2-16.2); Mean Corpuscular Hemoglobin 30.0 pg (28.0-32.0); Mean Corpuscular Volume 88.9 fL (80.0-100.0); Nucleated Red Blood Cells % 0.0 %; Sodium 140 mmol/L (136-145)
[2024-11-25 07:41] LABS: Calcium 8.5 mg/dL (8.7-10.4); Potassium 3.2 mmol/L (3.5-5.1)
[2024-11-25 07:43] LABS: Glucose 78 mg/dL (74-106)
[2024-11-25 07:44] LABS: BUN/Creatinine Ratio 8.2 (10.0-20.0)
[2024-11-25 07:45] LABS: Blood Urea Nitrogen 5 mg/dL (9-23)
[2024-11-25] MEDS: POTASSIUM EFFERVESENT TAB 25 MEQ PO ONE (11:57)
--- NOTE | 2024-11-25 12:50 | DVHPN2 ---
Chief Complaints Patient reports: No new complaints Nursing reports: No new complaints Objective Vitals Vital Signs Date Time Temp Pulse Resp B/P (MAP) Pulse Ox O2 Delivery O2 Flow Rate FiO2 11/25/24 09:00 98.0 81 18 106/68 (81) 99 98.0 11/25/24 08:00 Room Air* 0 21 Medications Current Medications Medications (Trade) Dose Ordered Sig/Leonarda Route PRN Reason Start Time Stop Time Status Last Admin Doxycycline Hyclate 100 ml @ 50 mls/hr Q12H IV 11/24/24 23:00 11/24/24 23:07 Metronidazole 100 ml @ 100 mls/hr Q8HR IV 11/24/24 14:00 11/25/24 06:46 Cardiovascular: Normal Abdominal: Soft Extremities: Normal Studies Laboratory Tests 11/25/24 06:00 Test 11/25/24 06:00 Range/Units Serum Glucose 78 74-106 mg/dL Ass/Plan Assessment pid improving Plan pt has been afebril responding well,cont w/abx Visit Coding OBGYN Date of Service: Nov 25, 2024 Billing Provider: JUDI HARRISON DO SHOPPER MARKETING MANAGER Common Visit Codes: [id number] INP/OBS CARE(HIGH) SHOPPER MARKETING MANAGER Consultation Codes: [id number] CONSULT <80MIN JUDI HARRISON DO Nov 25, 2024 12:50
[2024-11-25] MEDS: SODIUM CHLORIDE 0.9% 1,000 ML IV SCH (14:28)
--- NOTE | 2024-11-25 15:49 | DVHPNRES ---
Progress Note Date Seen: Nov 25, 2024 Resident Creating Document: JO SHER RESIDENT Medical Necessity Reason Pt with a Central, PICC or Fol: No Subjective Review of Systems Brief history on admission: Geena Fish is a 39-year-old female with past medical history of prediabetes and hypertension, presented to the ER with a chief complaint of abdominal pain, bloating. She describes the pain as 9/10, sharp pain, located in the periumbilical region; associated with nausea, subjective fever and chills. She had 1 episode of vomiting, with food contents, no blood, associated with dizziness. Her LMP is 11/15/24 regular cycles every month. She reports similar episode of mild abdominal pain, bloating last month that presented with vaginal spotting, spotting resolved after 7 days. The patient denies shortness of breath, dizziness, diarrhea, dysuria, hematuria or other symptoms. PMHx: Prediabetes, hypertension PSHx: sections Social history: He reports occasional alcohol use, denies smoking or recreational drug use ROS: Constitutional: Fever, chills , sweating profusely HEENT: Denies changes in vision and hearing. Respiratory: Denies shortness of breath and cough Cardiovascular: Denies chest discomfort or palpitations GI: Abdominal pain, nausea, bloating, nausea, vomiting : Denies dysuria and urinary frequency. Musculoskeletal: Denies myalgias and joint pain Skin: Denies rash and pruritus. Neurological: Dizziness 11/24/24: Complains of abdominal pain and reports feeling bloated, gassy. She also reported pressure on bladder when she tries to urinate. Her ultrasound reveals tubo-ovarian abscess, she will continue IV antibiotics. 11/25/24: She was examined at bedside today.Reports feeling better, reduced abdominal pain, no new complains. COMBINATION MAN consulted, recommended continuing IV abx. Objective vital signs Vital Sign Date Time Temp Pulse Resp B/P (MAP) Pulse Ox O2 Delivery O2 Flow Rate FiO2 11/25/24 13:00 97.9 95 18 105/60 (75) 99 97.9 11/25/24 08:00 Room Air* 0 21 Total Intake and Output 11/24/24 11/24/24 11/25/24 15:00 23:00 07:00 Intake Total 1100 ml 700 ml Balance 1100 ml 700 ml medications Current Medications Medications Dose Ordered Sig/Leonarda Route Start Time Stop Time Status Last Admin Dose Admin Ceftriaxone Sodium 50 ml @ 100 mls/hr DAILY IV 11/24/24 10:00 11/25/24 08:57 100 MLS/HR Acetaminophen 650 mg Q6HP PRN PO 11/23/24 23:45 11/24/24 08:40 650 MG Acetaminophen/ Hydrocodone Bitart 1 tab Q4HP PRN PO 11/23/24 23:45 Metronidazole 100 ml @ 100 mls/hr Q8HR IV 11/24/24 14:00 11/25/24 06:46 100 MLS/HR Doxycycline Hyclate 100 ml @ 50 mls/hr Q12H IV 11/24/24 23:00 11/25/24 13:43 50 MLS/HR Sodium Chloride 1,000 ml @ 60 mls/hr [id number] IV 11/25/24 13:15 11/25/24 14:28 60 MLS/HR Examination General: Patient alert and oriented in person, place and time. Patient following commands. HEENT: Normocephalic, atraumatic, moist mucous membranes Respiratory/pulmonary: Clear lungs bilaterally, vesicular murmurs present in almost all lung [place], no associated crackles or wheezes. Cardiovascular: Normal heart sounds S1 and S2 with no associated murmurs Abdomen: Mild Tenderness without guarding and rigidity Extremities: There is no peripheral edema present at the lower extremities. Peripheral Pulses: 3+ Radial (R). 3+ Radial (L). 3+ Dorsalis pedis (R). 3+ Dorsalis pedis(L) Skin: No rashes or pruritus, there is no sacral edema present at this time. Neurological: Intact cranial nerves with no focal neurologic deficits laboratory and microbiology Laboratory Tests 11/25/24 06:00 Test 11/25/24 06:00 Range/Units Serum Glucose 78 74-106 mg/dL Microbiology Date/Time Source Procedure Growth Status 11/23/24 22:40 Blood Blood Culture - Preliminary NO GROWTH AFTER 24 HOURS OF INCUBATION. Resulted Problem List/Assessment/Plan Problem List/Assessment/Plan Sepsis, likely due to tubo-ovarian abscess Pelvic inflammatory disease, possible Ovarian cyst Labs show neutrophilic leukocytosis Blood culture, trachomatis, and gonorrhea ordered Ultrasound shows 5 x 4 x 7 cm tubular structure seen in the posterior pelvis, likely representing a tubular ovarian abscess. Continue pain management Continue ceftriaxone, metronidazole, doxycycline OBGYN consulted recommended continuation of triple antibiotic therapy History of Essential hypertension, prediabetes DIET: Clear liquid DVT PROPHYLAXIS: SCD GI PROPHYLAXIS: Protonix CODE STATUS: Goals of care discussed with patient at bedside for more than 25 minutes. DISPOSITION: Med/surge Patient's status and plan discussed with the patient. Case discussed with Dr. Ritter. Plan discussed with: Patient My Orders My Orders Orders - JO SHER RESIDENT Procedure Category Date Status Time Potassium LAB 11/25/24 Logged 16:00 Complete Blood Count LAB 11/26/24 Verified 04:00 Date of Service: Nov 25, 2024 Billing Provider: PÉREZ RITTER MD Common Visit Codes: [id number] INP/OBS CARE(HIGH) JO SHER Nov 25, 2024 15:49 PÉREZ RITTER MD Dec 02, 2024 21:23
[2024-11-25 20:07] LABS: Chlamydia Trachomatis, NAA Negative (Negative); Neisseria gonorrhoeae, NAA Negative (Negative)
[2024-11-25] MEDS: DOXYCYCLINE 100 MG TAB/CAP PO SCH (20:58)
[2024-11-25] MEDS ORDERED: metroNIDAZOLE 500 MG TAB PO SCH (22:00)
[2024-11-26 07:41] LABS: Hematocrit 33.5 % (36.0-46.0); Hemoglobin 11.4 g/dL (12.2-16.2); Mean Corpuscular Hemoglobin 30.0 pg (28.0-32.0); Mean Corpuscular Volume 88.2 fL (80.0-100.0); Nucleated Red Blood Cells % 0.1 %
[2024-11-26 07:52] LABS: Chloride 106 mmol/L (98-107); Potassium 3.6 mmol/L (3.5-5.1); Sodium 142 mmol/L (136-145)
[2024-11-26 07:53] LABS: Anion Gap 11 (5-15); Calcium 8.9 mg/dL (8.7-10.4); Carbon Dioxide 25 mmol/L (20-31)
[2024-11-26 07:58] LABS: BUN/Creatinine Ratio 11.5 (10.0-20.0); Glucose 88 mg/dL (74-106)
[2024-11-26 08:00] VITALS: PULSE 72
[2024-11-26 08:00] LABS: Blood Urea Nitrogen 7 mg/dL (9-23)
[2024-11-26 09:00] VITALS: BP 119/76; PULSE 76; RESP 18; TEMP 97.7; O2SAT 99
[2024-11-26 13:00] VITALS: BP 104/62; PULSE 74; RESP 18; TEMP 97.5; O2SAT 99
--- NOTE | 2024-11-26 14:02 | DVHPN2 ---
Chief Complaints Patient reports: No new complaints, Feels better Nursing reports: No new complaints Objective Vitals Vital Signs Date Time Temp Pulse Resp B/P (MAP) Pulse Ox O2 Delivery O2 Flow Rate FiO2 11/26/24 09:00 97.7 76 18 119/76 (90) 99 97.7 11/25/24 20:00 Room Air* 0 21 Medications Current Medications Medications (Trade) Dose Ordered Sig/Leonarda Route PRN Reason Start Time Stop Time Status Last Admin Doxycycline Monohydrate (Vibramycin Tablet) 100 mg Q12H PO 11/25/24 22:00 11/26/24 09:24 Cardiovascular: Normal Abdominal: Soft Extremities: Normal Studies Laboratory Tests 11/26/24 06:21 Test 11/26/24 06:21 Range/Units Serum Glucose 88 74-106 mg/dL Ass/Plan Assessment pid resolving on abx responded well Plan recommend dc on doxy 100mg bid x14d fu outpt with dispatcher chief oil will sign off thank you Visit Coding OBGYN Date of Service: Nov 26, 2024 Billing Provider: JUDI HARRISON DO [employer] Common Visit Codes: [id number] INP/OBS CARE(HIGH) [employer] Consultation Codes: [id number] CONSULT <40MIN JUDI HARRISON DO Nov 26, 2024 14:02
--- NOTE | 2024-11-26 15:28 | DVHDSRES ---
Discharge Summary Date of Admission Resident Creating Document: JO SHER RESIDENT Nov 23, 2024 at 23:38 Date of Discharge: Nov 26, 2024 Labs/Diagnostic Data: Laboratory Results Test 11/26/24 06:21 11/23/24 22:38 11/23/24 19:21 11/23/24 18:41 White Blood Count 7.7 10^3/uL (4.4-10.8) Red Blood Count 3.80 10^6/uL (4.0-5.20) Hemoglobin 11.4 g/dL (12.2-16.2) Hematocrit 33.5 % (36.0-46.0) Mean Corpuscular Volume 88.2 fL (80.0-100.0) Mean Corpuscular Hemoglobin 30.0 pg (28.0-32.0) Mean Corpuscular Hemoglobin Concent 34.1 g/dL (32.0-36.0) Red Cell Distribution Width 13.8 % (11.8-14.3) Platelet Count 326 10^3/uL (140-450) Mean Platelet Volume 8.0 fL (6.9-10.8) Neutrophils (%) (Auto) 73.4 % (37.0-80.0) Lymphocytes (%) (Auto) 20.0 % (10.0-50.0) Monocytes (%) (Auto) 5.6 % (0.0-12.0) Eosinophils (%) (Auto) 0.7 % (0.0-7.0) Basophils (%) (Auto) 0.3 % (0.0-2.0) Neutrophils # (Auto) 5.7 10 ^3/uL (1.6-8.6) Lymphocytes # (Auto) 1.5 10 ^3/uL (0.4-5.4) Monocytes # (Auto) 0.4 10 ^3/uL (0-1.3) Eosinophils # (Auto) 0.1 10 ^3/uL (0-0.8) Basophils # (Auto) 0 10 ^3/uL (0-0.2) Nucleated Red Blood Cells 0.1 % Sodium Level 142 mmol/L (136-145) Potassium Level 3.6 mmol/L (3.5-5.1) Chloride Level 106 mmol/L (98-107) Carbon Dioxide Level 25 mmol/L (20-31) Anion Gap 11 (5-15) Blood Urea Nitrogen 7 mg/dL (9-23) Creatinine 0.61 mg/dL (0.550-1.02) Glomerular Filtration Rate Calc 116 mL/min (>90) BUN/Creatinine Ratio 11.5 (10.0-20.0) Serum Glucose 88 mg/dL (74-106) Calcium Level 8.9 mg/dL (8.7-10.4) Lactic Acid Level 0.9 mmol/L (0.4-2.0) Hemoglobin A1c 5.9 % A1C (<5.7) Total Bilirubin 0.5 mg/dL (0.2-1.0) Aspartate Amino Transferase (AST) 15 U/L (13-40) Alanine Aminotransferase (ALT) 15 U/L (7-40) Alkaline Phosphatase 61 U/L (46-116) Total Protein 7.8 g/dL (5.7-8.2) Albumin 4.4 g/dL (3.2-4.8) Lipase 29 U/L (12-53) Beta HCG, Quantitative < 0.0 mIU/mL (1.5-4.2) Urine Color Yellow (Yellow) Urine Clarity Clear (Clear) Urine pH 8.0 (5.0-9.0) Urine Specific [place] 1.027 (1.001-1.035) Urine Protein Trace (Negative) Urine Ketones Negative (Negative) Urine Blood Negative /uL (Negative) Urine Nitrite Negative (Negative) Urine Bilirubin Negative (Negative) Urine Urobilinogen Normal mg/dL (Negative) Urine Leukocyte Esterase Negative /uL (Negative) Urine RBC 1 /hpf (0 - 4) Urine Microscopic WBC 2 /HPF (0-5) Urine Squamous Epithelial Cells Few /hpf (<5) Urine Bacteria None seen /hpf (None Seen) Urine Mucus Few (None Seen) Urine Glucose Normal mg/dL (Normal) Urine Test Negative (Negative) Urine Opiates Screen Neg (NEGATIVE) Urine Fentanyl Screen Neg (NEGATIVE) Urine Barbiturates Screen Neg (NEGATIVE) Urine Phencyclidine Screen Neg (NEGATIVE) Urine Amphetamines Screen Neg (NEGATIVE) Urine Benzodiazepines Screen Neg (NEGATIVE) Urine Cocaine Screen Neg (NEGATIVE) Urine Cannabinoids Screen Neg (NEGATIVE) Chlamydia trachomatis (CARMEN) Negative (Negative) Neisseria gonorrhoeae (CARMEN) Negative (Negative) Other Laboratory Tests 11/26/24 06:21 Brief Hx & Hospital Course: Brief history on admission: Geena Fish is a 39-year-old female with past medical history of prediabetes and hypertension, presented to the ER with a chief complaint of abdominal pain, bloating. She describes the pain as 9/10, sharp pain, located in the periumbilical region; associated with nausea, subjective fever and chills. She had 1 episode of vomiting, with food contents, no blood, associated with dizziness. Her LMP is 11/15/24 regular cycles every month. She reports similar episode of mild abdominal pain, bloating last month that presented with vaginal spotting, spotting resolved after 7 days. The patient denies shortness of breath, dizziness, diarrhea, dysuria, hematuria or other symptoms. Hospital course: She was admitted along the line of sepsis likely due to tubo-ovarian abscess. Initial labs revealed neutrophilic leukocytosis, ultrasound showed tubular structure in the posterior pelvis representing a tubo-ovarian abscess. She was started on IV antibiotics, pain management, IV fluids. OBGYN consulted, continued triple antibiotic therapy. Her symptoms improved and CT abdomen was done. She is stable for discharge on oral doxycycline and we will continue follow with PCP and stonework tracer outpatient. Conditions managed during hospital stay: Sepsis, likely due to tubo-ovarian abscess Pelvic inflammatory disease, possible Ovarian cyst History of Essential hypertension, prediabetes Discharge plan: Please follow with PCP in 1 week Please follow-up with OBGYN as outpatient Continue oral doxycycline twice daily for 14 days Consults/Reason for consult OBGYN consulted, recommended continuation of triple antibiotic therapy, no procedure was advised during stay.. Operations or Procedures Multiple real-time grayscale transabdominal and TV sonographic images along with color and duplex Doppler of the uterus and ovaries were obtained. COMPARISON: None FINDINGS: The uterus measures 10 x 5 x 4 cm. The endometrial stripe measures 9.8cm. The right ovary measures 2 x 1 x 1 cm. 1 cm right ovarian cyst. The left ovary measures 4 x 5 x 4 cm. There is a complex 5 x 4 x 7 cm tubular structure seen in the posterior pelvis. This could represent a tubular ovarian abscess. 2 x 2 x 3 cm complex cyst left ovary. Subsequent color and duplex Doppler interrogation of the ovaries demonstrated symmetric vascular flow to both ovaries, though this does not exclude the possibility of torsion due to the dual blood supply. IMPRESSION: 1. complex 5 x 4 x 7 cm tubular structure seen in the posterior pelvis. This could represent a tubular ovarian abscess. --- CT CT AB PEL WITH IV CON ONLY History: abd pain Comparison Study: None TECHNIQUE: Multidetector CT of the abdomen was performed from lung bases to pubic symphysis. Imaging was performed without IV contrast. Axial, coronal and sagittal multiplanar reformats were obtained from the axial data set by the technologist. Radiation Dose Information: CT Dose: CTDI volume is 8.38 mGy. Dose-length product is 436.9 mGy*cm Omnipaque 350: 100 mL FINDINGS: Evaluation of solid organs is limited due to lack of intravenous contrast use. Findings: Lung Bases: No acute or significant lung base finding. Normal heart size. No pleural or pericardial effusion. Liver: The liver is normal in size. No focal lesions. Gallbladder and Biliary Tree: Unremarkable Spleen: Unremarkable Pancreas: The pancreas is grossly normal in appearance. Adrenal Glands: Unremarkable Kidneys: Kidneys are grossly normal without calculi or hydronephrosis. Bladder: Grossly unremarkable for degree of distention. Bowel: The stomach is grossly normal in appearance. Small bowel and colon are normal in caliber and distribution. The appendix is not visualized; however, no secondary findings of acute appendicitis identified. Ascites: Absent Lymphadenopathy: No mesenteric, retroperitoneal or periportal lymphadenopathy. Abdominal Wall and Mesentery: Unremarkable. Vasculature: The visualized abdominal aorta is normal in size and caliber. Evaluation of abdominal and pelvic vessels is limited due to lack of intravenous contrast. Pelvic Organs: In the left adnexa there appear to be 2 low-density masses which appear to be overlapping or may represent a solitary septated mass. Measures 5 0.1 x 3.7 cm. Pain is referable to this area recommend pelvic ultrasound. There appears to be 5.7 by 3 cm fluid collection in the cul-de-sac. Musculoskeletal: No aggressive focal bony lesions, acute fractures or dislocation. Soft tissues: Unremarkable IMPRESSION: 1. 2 low-density masses in the left adnexa with moderate amount of fluid in the cul-de-sac. Findings may represent simple ovarian cysts or tubo-ovarian abscess. Can not exclude ovarian torsion correlate with the degree of patient discomfort. Tissue density of the fluid in the cul-de-sac is 24 Hounsfield units. This is not simple serous fluid of a uncomplicated cyst. This may represent hemorrhagic fluid or infected fluid. No gas in the collection. 2. Correlate with the clinical setting. 3. Appendix not visualized. 4. Currently there are no findings to suggest bowel obstruction. --- Multiple real-time grayscale transabdominal and TV sonographic images along with color and duplex Doppler of the uterus and ovaries were obtained. COMPARISON: None FINDINGS: The uterus measures 10 x 5 x 4 cm. The endometrial stripe measures 9.8cm. The right ovary measures 2 x 1 x 1 cm. 1 cm right ovarian cyst. The left ovary measures 4 x 5 x 4 cm. There is a complex 5 x 4 x 7 cm tubular structure seen in the posterior pelvis. This could represent a tubular ovarian abscess. 2 x 2 x 3 cm complex cyst left ovary. Subsequent color and duplex Doppler interrogation of the ovaries demonstrated symmetric vascular flow to both ovaries, though this does not exclude the possibility of torsion due to the dual blood supply. IMPRESSION: 1. complex 5 x 4 x 7 cm tubular structure seen in the posterior pelvis. This could represent a tubular ovarian abscess. Condition at Discharge: Stable Final Diagnosis/Problems List Sepsis, likely due to tubo-ovarian abscess Discharge Disposition: Home Discharge Instruct/Medications Diet: Consistent carbohydrate, Cardiac 2g Na,low cholest Activity: No Restrictions, As Tolerated Scheduled Doxycycline Hyclate (Doxycycline Hyclate), 100 MG PO BID Discharge Statement: "Patient was advised to return to the ER or call 911 if any headaches, dizziness, shortness of breath, chest pain, abdominal pain, bleeding, fevers, or worsening of medical condition. Patient was counseled about treatment plan, medications, possible side effects, patientverbalized understanding. All questions were answered to the best of my ability. This discharge took greater then 30 minutes in planning, reviewing documentation, counseling the patient, and discussing with other team members." ASSESSMENT ASSESSMENT Assessment Date of Service: Nov 26, 2024 Billing Provider: PÉREZ PEACOCK MD Common Visit Codes: 47556-AIQ/[id number] DISCH DAY >30min JO SHER Nov 26, 2024 15:28 PÉREZ PEACOCK MD Dec 02, 2024 22:09
[2024-11-26] MEDS ORDERED: IOHEXOL 300 MG/ML 100ML BOTTLE IJ ONE (15:32)
--- NOTE | 2024-11-26 16:19 | DVH ---
Exam: CT CT AB PEL WITH IV CON ONLY History: R/o tuboovarian abcess interval changes Comparison Study: US PELVIC on DOS: 11/23/24, CT CT AB PEL WITH IV CON ONLY on DOS: 11/23/24 TECHNIQUE: Multidetector CT of the abdomen and pelvis with IV contrast. Axial, coronal and sagittal m ultiplanar reformats were obtained from the axial data set by the technologist. Radiation Dose Information: CT Dose: CTDI volume is 10.47 mGy. Dose-length product is 542.61 mGy*cm FINDINGS: The lung bases are clear. Partially visualized heart is unremarkable. Liver, spleen, gallbladder, pancreas and adrenal glands unremarkable. Kidneys, ureters and urinary bladder are unremarkable. Uterus is unremarkable. Relatively unchanged s uggested tubo-ovarian abscess within the pelvis with unchanged adjacent fat stranding. Unchanged prom inence of the left ovary with multiple left ovarian cysts, largest measuring up to 2.1 cm. Stomach is unremarkable. Small bowel loops are unremarkable. Appendix is unremarkable. Small to moder ate amount of fecal material within the colon. No evidence of intraperitoneal free air. No evidence of aortic aneurysm or dissection. Shotty retroperitoneal lymph nodes. Small fat containing umbilical hernia. Soft tissues unremarkable. No evidence of acute osseous abnorm alities. IMPRESSION: Relatively unchanged Suggested tubo-ovarian abscess with adjacent fat stranding. Relatively unchanged left ovarian cysts.
[2024-11-26] MEDS ORDERED: DOXY-286 PO (16:24)
[2024-11-26 17:00] VITALS: BP 126/86; PULSE 88; RESP 18; TEMP 97.5; O2SAT 98
[2024-11-26] MEDS ORDERED: DOXY100T2 PO (17:20)
[2024-11-26 19:45] VITALS: BP 139/81; PULSE 91; RESP 18; TEMP 97.7; O2SAT 98
[2024-11-26 20:00] VITALS: RESP 18
== END 2024-11-26 20:40 | disposition home or self-care (01) | DRG 720 ==
LOC: ER 18:29 → OVERFLOW 23:38 → TELE-WESTW 11-24 14:01
PROVIDERS: ADMIT Student in an Organized Health Care Education/Training Program; ATTEND Obstetrics & Gynecology
DX: A41.9 Sepsis, unspecified organism (principal); I10 Essential (primary) hypertension; R73.03 Prediabetes; N73.9 Female pelvic inflammatory disease, unspecified; N70.93 Salpingitis and oophoritis, unspecified; N83.292 Other ovarian cyst, left side; Z83.3 Family history of diabetes mellitus
CPT/HCPCS: 36415; 74177; 76830; 76856; 80048; 80053; 80307; 81001; 81025; 83036; 83605; 83690; 84132; 84702; 85025; 87040; 96360; 96361; G0378; J2470; J3490